=== PATIENT | female | born 1945 | race African-American/Black ===

== ENCOUNTER 2019-05-30 09:53 | Emergency (ER) | payer MEDICARE, OTHER ==
[~2019-05-30] VITALS: Ht 177.8 cm; Wt 82.5 kg
[2019-05-30] MEDS ORDERED: TRIA1TAB94 PO (11:12)
[2019-05-30] MEDS ORDERED: simvastatin (11:12)
[2019-05-30] MEDS ORDERED: ASPI-1497 PO (11:12)
[2019-05-30] MEDS ORDERED: ACETAMINOPHEN 325MG TABLET PO ONE (13:00)
[2019-05-30 14:39] VITALS: BP 134/62
== END 2019-05-30 14:40 | disposition home or self-care (01) ==
LOC: ER 09:53
DX: J06.9 Acute upper respiratory infection, unspecified (principal); H92.02 Otalgia, left ear; E78.00 Pure hypercholesterolemia, unspecified; I10 Essential (primary) hypertension; H57.13 Ocular pain, bilateral; Z96.649 Presence of unspecified artificial hip joint; Z96.659 Presence of unspecified artificial knee joint; Z87.891 Personal history of nicotine dependence; Z79.899 Other long term (current) drug therapy
CPT/HCPCS: 71045; 87804; 99284

== ENCOUNTER 2023-04-10 15:12 | Emergency (ER) | payer MEDICARE, OTHER ==
[~2023-04-10] VITALS: Ht 175.3 cm; Wt 82.0 kg
[~2023-04-10 15:12] MED LIST: ASPI-1497 PO; TRIA1TAB94 PO; simvastatin
[2023-04-10] MEDS ORDERED: ONDANSETRON 4MG ODT PO STA (15:21)
[2023-04-10 15:26] VITALS: TEMP 98.1; O2SAT 99
[2023-04-10 16:49] LABS: BASOPHILS % 0.6 % (0.0-2.0); EOSINOPHILS % 0.5 % (0.0-5.0); HEMATOCRIT. 40.1 % (36.0-48.0); LYMPHOCYTES % 33.5 % (20.0-50.0); MEAN CORPUSCULAR HEMOGLOBIN 29.7 pg (28.0-32.0); MEAN CORPUSCULAR HGB CONC 32.3 g/dL (31.0-37.0); MEAN PLATELET VOLUME 7.8 fl (7.4-10.4); MONOCYTES % 6.5 % (2.0-8.0); NEUTROPHILS % 58.9 % (40.0-76.0); PLATELET 281 x1000/uL (130-400); RED BLOOD CELL COUNT 4.36 mill/uL (4.2-5.4); RED CELL DISTRIBUTION WIDTH 14.5 % (11.6-14.6); WHITE BLOOD COUNT 4.9 x1000/uL (4.5-11.0)
[2023-04-10 17:00] LABS: ALANINE AMINOTRANSFERASE 16 IU/L (10-49); ALBUMIN 4.6 g/dL (3.2-4.8); ASPARTATE AMINOTRANSFERASE 23 IU/L (<34); BILIRUBIN TOTAL 0.3 mg/dL (0.1-1.0); CALCIUM 9.5 mg/dL (8.7-10.4); CARBON DIOXIDE 30 mEq/L (21-32); CHLORIDE 103 mEq/L (98-107); CREATININE 0.8 mg/dL (0.6-1.0); GLUCOSE 108 mg/dL (70-105); POTASSIUM 3.5 mEq/L (3.5-5.1); PROTEIN TOTAL 7.6 g/dL (6.0-8.3); SODIUM 140 mEq/L (136-145); UREA NITROGEN BLOOD 9 mg/dL (9-23)
[2023-04-10 18:05] VITALS: BP 172/76; PULSE 75; RESP 16
== END 2023-04-10 18:08 | disposition home or self-care (01) ==
LOC: ER 15:12
DX: R11.2 Nausea with vomiting, unspecified (principal); I10 Essential (primary) hypertension; E78.00 Pure hypercholesterolemia, unspecified; Z68.26 Body mass index [BMI] 26.0-26.9, adult
CPT/HCPCS: 36415; 80053; 85025; 99283